=== PATIENT | female | born 1995 | race Caucasian/White ===

== ENCOUNTER 2017-10-23 12:00 | Emergency (ER) | payer MEDICAID, OTHER ==
[~2017-10-23] VITALS: Ht 162.6 cm; Wt 109.0 kg
[~2017-10-23 12:00] MED LIST: MACROBID PO; OMEG500C3 PO; PREN-139 PO
[2017-10-23 12:16] VITALS: BP 138/86
[2017-10-23] MEDS ORDERED: ketorolac trometh inj. 60 MG/2 ML VIAL IM ONE (12:25)
[2017-10-23] MEDS ORDERED: HYDROcodone/acetaminophen 5mg/325mg tablet PO ONE (12:25)
[2017-10-23] MEDS ORDERED: orphenadrine citrate 60mg/2ml inj. IM ONE (12:25)
[2017-10-23] MEDS ORDERED: CYCL-1 PO (13:05)
[2017-10-23] MEDS ORDERED: IBUP-1984 PO (13:05)
== END 2017-10-23 13:16 | disposition home or self-care (01) ==
LOC: ER 12:01
DX: M54.6 Pain in thoracic spine (principal); M62.830 Muscle spasm of back; Z88.2 Allergy status to sulfonamides; Z88.1 Allergy status to other antibiotic agents; Z79.899 Other long term (current) drug therapy; X50.1XXA Overexertion from prolonged static or awkward postures, initial encounter; Y93.89 Activity, other specified; Y92.89 Other specified places as the place of occurrence of the external cause; Y99.9 Unspecified external cause status
CPT/HCPCS: 72070; 96372; 99284; J1885; J2360

== ENCOUNTER 2018-01-07 20:49 | Emergency (ER) | payer OTHER ==
[~2018-01-07] VITALS: Ht 162.6 cm; Wt 109.0 kg
[~2018-01-07 20:49] MED LIST changes: +CYCL-1 PO
[2018-01-07] MEDS ORDERED: metoclopramide 5 mg/ml inj IV ONE (21:30)
[2018-01-07] MEDS ORDERED: diphenhydrAMINE 50 mg/ml inj IV ONE (21:30)
[2018-01-07] MEDS ORDERED: normal saline 1000ML IV soln IVB ONE (21:30)
[2018-01-07 21:45] VITALS: BP 130/84
[2018-01-09] MEDS ORDERED: LORA0.5T PO (22:05)
[2018-01-09] MEDS ORDERED: MECL-111 PO (22:05)
== END 2018-01-07 22:35 | disposition home or self-care (01) ==
LOC: ER 20:49
DX: G43.909 Migraine, unspecified, not intractable, without status migrainosus (principal); Z88.2 Allergy status to sulfonamides; Z88.1 Allergy status to other antibiotic agents; Z88.0 Allergy status to penicillin; Z79.899 Other long term (current) drug therapy
CPT/HCPCS: 96374; 96375; 99283; J1200; J2765; J7030

== ENCOUNTER 2018-04-07 08:05 | Emergency (ER) | payer OTHER ==
[~2018-04-07] VITALS: Ht 162.6 cm; Wt 114.0 kg
[~2018-04-07 08:05] MED LIST changes: +CLIN150C2 PO; +DEC4T PO; +MECL-111 PO
[2018-04-07 08:20] VITALS: BP 176/93
== END 2018-04-07 08:49 | disposition home or self-care (01) ==
LOC: ER 08:05
DX: H66.91 Otitis media, unspecified, right ear (principal); G43.909 Migraine, unspecified, not intractable, without status migrainosus; Z88.1 Allergy status to other antibiotic agents; Z88.2 Allergy status to sulfonamides
CPT/HCPCS: 99281

== ENCOUNTER 2018-10-03 19:13 | Emergency (ER) | payer OTHER ==
[~2018-10-03] VITALS: Ht 162.6 cm; Wt 100.1 kg
[~2018-10-03 19:13] MED LIST changes: -CLIN150C2 PO; -CYCL-1 PO; -DEC4T PO; -MACROBID PO; -OMEG500C3 PO; +ONDA8TAB6 PO; -PREN-139 PO
[2018-10-03 19:26] VITALS: BP 123/86
[2018-10-03] MEDS ORDERED: meclizine 12.5mg tablet PO ONE (21:05)
[2018-10-03] MEDS ORDERED: diphenhydrAMINE 50 mg/ml inj IV ONE (21:05)
[2018-10-03] MEDS ORDERED: ketorolac tromethamine 15mg/ml inj. IV ONE (21:05)
[2018-10-03] MEDS ORDERED: normal saline 1000ML IV soln IVB ONE (21:05)
[2018-10-03] MEDS ORDERED: proCHLORperazine 10 MG/2 ml inj IV ONE (21:05)
[2018-10-03] MEDS ORDERED: LORazepam 2 mg/ml vial IV ONE (21:05)
[2018-10-03] MEDS ORDERED: SUMA25TA35 PO (23:10)
== END 2018-10-03 23:31 | disposition home or self-care (01) ==
LOC: ER 19:14
DX: G43.909 Migraine, unspecified, not intractable, without status migrainosus (principal); R42 Dizziness and giddiness; F10.99 Alcohol use, unspecified with unspecified alcohol-induced disorder; Z88.2 Allergy status to sulfonamides; Z88.1 Allergy status to other antibiotic agents; Z79.899 Other long term (current) drug therapy; Y90.9 Presence of alcohol in blood, level not specified
CPT/HCPCS: 96361; 96374; 96375; 99283; J0780; J1200; J1885; J2060; J7030; J8597

== ENCOUNTER 2018-11-30 11:24 | Emergency (ER) | payer OTHER ==
[~2018-11-30] VITALS: Ht 162.6 cm; Wt 97.0 kg
--- NOTE | 2018-11-30 11:39 | NUR ---
awaiting for ed provider.
[2018-11-30] MEDS ORDERED: proCHLORperazine 10 MG/2 ml inj IV ONE (12:00)
[2018-11-30] MEDS ORDERED: normal saline 1000ML IV soln IVB ONE (12:00)
[2018-11-30] MEDS ORDERED: diazepam 5mg tablet PO ONE (12:00)
[2018-11-30] MEDS ORDERED: diphenhydrAMINE 50 mg/ml inj IV ONE (12:00)
--- NOTE | 2018-11-30 12:33 | NUR ---
primary rn just sent to lunch, will monitor all her pt's
[2018-11-30] MEDS ORDERED: morphine 4 MG/ML inj SYRINge IV ONE (13:30)
[2018-11-30] MEDS ORDERED: NORMAL SALINE IV ONE (13:30)
[2018-11-30] MEDS ORDERED: KETAMINE IV ONE (13:30)
--- NOTE | 2018-11-30 13:38 | NUR ---
called pharmacy,still mixing ketamine.
[2018-11-30 14:41] VITALS: BP 132/67
== END 2018-11-30 14:44 | disposition home or self-care (01) ==
LOC: ER 11:24
DX: G43.909 Migraine, unspecified, not intractable, without status migrainosus (principal); R11.2 Nausea with vomiting, unspecified; F10.99 Alcohol use, unspecified with unspecified alcohol-induced disorder; Z88.2 Allergy status to sulfonamides; Z88.1 Allergy status to other antibiotic agents; Z79.899 Other long term (current) drug therapy; Y90.9 Presence of alcohol in blood, level not specified
CPT/HCPCS: 70450; 96361; 96365; 96375; 99284; J0780; J1200; J7030

== ENCOUNTER 2021-08-22 19:23 | Emergency (ER) | payer OTHER, MEDICAID ==
[~2021-08-22] VITALS: Ht 162.6 cm; Wt 101.4 kg
[~2021-08-22 19:23] MED LIST changes: -MECL-111 PO; +MECL-159 PO
[2021-08-22 19:39] VITALS: BP 131/88
[2021-08-22] MEDS ORDERED: proCHLORperazine 10 MG/2 ml inj IV ONE (21:30)
[2021-08-22] MEDS ORDERED: normal saline 1000ml 1,000 ML IV ONE (21:30)
[2021-08-22] MEDS ORDERED: diphenhydrAMINE 50 mg/ml inj IV ONE (21:30)
[2021-08-22] MEDS ORDERED: LORazepam 2 mg/ml vial IV ONE (22:35)
[2021-08-22 22:51] LABS: HCG SERUM QL NEGATIVE
== END 2021-08-23 00:46 | disposition left against medical advice (07) ==
LOC: ER 19:23
DX: H81.10 Benign paroxysmal vertigo, unspecified ear (principal); G43.909 Migraine, unspecified, not intractable, without status migrainosus; Z88.1 Allergy status to other antibiotic agents; Z88.2 Allergy status to sulfonamides
CPT/HCPCS: 36415; 70450; 84703; 96361; 96374; 96375; 99284; J0780; J1200; J2060; J7030

== ENCOUNTER 2021-09-28 11:56 | Emergency (ER) | payer OTHER, MEDICAID ==
[~2021-09-28] VITALS: Ht 162.6 cm; Wt 97.7 kg
[2021-09-28 12:23] VITALS: BP 127/82
[2021-09-28] MEDS ORDERED: normal saline 1000ml 1,000 ML IV ONE (13:55)
[2021-09-28] MEDS ORDERED: cyclobenzaprine 10mg tablet PO ONE (13:55)
[2021-09-28] MEDS ORDERED: ketorolac trometh. 30mg/ml inj. IV ONE (13:55)
[2021-09-28 14:25] LABS: CLARITY,URINE SLIGHTLY CLOUDY (Clear); COLOR,URINE YELLOW (Yellow); GLUCOSE, URINE NEGATIVE (Neg); KETONES,URINE 15 mg/dl (Neg); LEUKOCYTE ESTERASE ,URINE TRACE (Neg); NITRITES, URINE NEGATIVE (Neg); OCCULT BLOOD,URINE NEGATIVE (Neg); PH,URINE 5.5 (4.8-8.0); PROTEIN,URINE NEGATIVE (Neg); UROBILINOGEN,URINE 0.2 E.U/dL (0.2-1.0)
[2021-09-28 14:28] LABS: UA COLLECTION TYPE NON-SPECIFIED
[2021-09-28 14:31] LABS: URINE AMPHETAMINE SCREEN NEGATIVE (Neg); URINE BARBITUATE SCREEN NEGATIVE (Neg); URINE BENZODIAZEPINES SCREEN NEGATIVE (Neg); URINE CANNABINOID SCREEN NEGATIVE (Neg); URINE COCAINE SCREEN NEGATIVE (Neg); URINE METHADONE SCREEN NEGATIVE (Neg); URINE OPIATE SCREEN NEGATIVE (Neg); URINE PHENCYCLIDINE SCREEN NEGATIVE (Neg)
[2021-09-28 14:36] LABS: BASOPHILS % (AUTO) 0.2 % (0-1); EOSINOPHILS % (AUTO) 0.6 % (0-6); HEMATOCRIT 41.7 % (35.0-45.0); HEMOGLOBIN 14.1 g/dl (12.0-16.0); LYMPHOCYTES # (AUTO) 1.5 X10'3 (1.1-4.8); LYMPHOCYTES % (AUTO) 18.3 % (21-51); MEAN CORPUSCULAR HEMOGLOBIN 28.8 PG (27.0-31.0); MEAN CORPUSCULAR HGB CONC 33.7 g/dL (33.0-36.5); MEAN CORPUSCULAR VOLUME 85.4 FL (78-98); MEAN PLATELET VOLUME 7.7 FL (7.4-10.4); MONOCYTES # (AUTO) 0.3 X10'3 (0-0.9); MONOCYTES % (AUTO) 4.4 % (2-12); NEUTROPHILS # (AUTO) 6.1 X10'3 (1.8-7.7); NEUTROPHILS % (AUTO) 76.5 % (42-75); PLATELET COUNT 267 X10'3 (140-440); RED BLOOD COUNT 4.89 X10'6 (4.20-5.60); RED CELL DISTRIBUTION WIDTH 13.4 % (11.5-14.5); WHITE BLOOD COUNT 7.9 X10'3 (4.5-11.0)
[2021-09-28 14:42] LABS: SQUAMOUS EPITHELIAL CELL,UR MANY /LPF (FEW)
[2021-09-28 14:43] LABS: WBC,URINE 0-4 /HPF (0-4)
[2021-09-28 14:44] LABS: WBC CLUMPS,URINE FEW /HPF (NEGATIVE)
[2021-09-28 14:45] LABS: BACTERIA,URINE 1+ /HPF (Neg); RBC,URINE 0-2 /HPF (0-2)
[2021-09-28 14:48] LABS: ALANINE AMINOTRANSFERASE 27 U/L (12-78); ALBUMIN 4.2 G/DL (3.4-5.0); ALBUMIN/GLOBULIN RATIO 1.3 (1.1-1.5); ALKALINE PHOSPHATASE 84 IU/L (46-116); ANION GAP 10 (8-16); ASPARTATE AMINO TRANSFERASE 20 U/L (10-37); BILIRUBIN,TOTAL 1.6 MG/DL (0.1-1.0); BLOOD UREA NITROGEN 12 MG/DL (7-18); CALCIUM 8.8 MG/DL (8.5-10.1); CHLORIDE 107 MMOL/L (99-107); CREATININE 0.63 MG/DL (0.40-0.90); GLUCOSE 110 MG/DL (70-104); POTASSIUM 3.5 MMOL/L (3.5-5.1); SODIUM 143 MMOL/L (135-145); TOTAL CARBON DIOXIDE 26.1 MMOL/L (24-32); TOTAL PROTEIN 7.5 G/DL (6.4-8.2); eGFR > 90 ML/MIN
[2021-09-28] MEDS ORDERED: CYCL-1 PO (15:25)
[2021-09-28] MEDS ORDERED: MECL-159 PO (15:25)
[2021-09-28] MEDS ORDERED: IBUP-1986 PO (15:25)
== END 2021-09-28 15:57 | disposition home or self-care (01) ==
LOC: ER 11:56
DX: M54.89 Other dorsalgia (principal); H81.10 Benign paroxysmal vertigo, unspecified ear; M54.2 Cervicalgia; R11.10 Vomiting, unspecified; G89.29 Other chronic pain; G43.909 Migraine, unspecified, not intractable, without status migrainosus; Z72.89 Other problems related to lifestyle; Z88.2 Allergy status to sulfonamides; Z88.1 Allergy status to other antibiotic agents; Z88.8 Allergy status to other drugs, medicaments and biological substances; Z79.899 Other long term (current) drug therapy
CPT/HCPCS: 36415; 80053; 80305; 81001; 85025; 96361; 96374; 99284; J1885; J7030

== ENCOUNTER 2022-03-21 06:51 | Emergency (ER) | payer OTHER, MEDICAID ==
[~2022-03-21] VITALS: Ht 162.6 cm; Wt 100.0 kg
[~2022-03-21 06:51] MED LIST changes: +CYCL-1 PO; +IBUP-1986 PO
[2022-03-21 06:58] VITALS: BP 138/84
[2022-03-21] MEDS ORDERED: normal saline 1000ML IV soln IVB ONE (08:25)
[2022-03-21] MEDS ORDERED: SUMAtriptan succ. 6 MG/0.5ml vial SQ ONE (08:25)
[2022-03-21] MEDS ORDERED: metoclopramide 5 mg/ml inj IV ONE (08:25)
--- NOTE | 2022-03-21 09:39 | NUR ---
pt now states headache is gone and feels better, placed for re-eval to
== END 2022-03-21 10:54 | disposition home or self-care (01) ==
LOC: ER 06:52
DX: G43.909 Migraine, unspecified, not intractable, without status migrainosus (principal); G89.29 Other chronic pain; M54.9 Dorsalgia, unspecified; Z88.2 Allergy status to sulfonamides; Z88.1 Allergy status to other antibiotic agents; Z79.899 Other long term (current) drug therapy
CPT/HCPCS: 96361; 96372; 96374; 99284; J2765; J3030; J7030

== ENCOUNTER 2022-06-08 18:47 | Emergency (ER) | payer OTHER, MEDICAID ==
[~2022-06-08] VITALS: Ht 162.6 cm; Wt 96.4 kg
[2022-06-08 19:09] LABS: BASOPHILS % (AUTO) 0.1 % (0-1); EOSINOPHILS % (AUTO) 0.1 % (0-6); HEMATOCRIT 43.2 % (35.0-45.0); HEMOGLOBIN 14.4 g/dl (12.0-16.0); LYMPHOCYTES # (AUTO) 1.2 X10'3 (1.1-4.8); LYMPHOCYTES % (AUTO) 11.3 % (21-51); MEAN CORPUSCULAR HEMOGLOBIN 28.9 PG (27.0-31.0); MEAN CORPUSCULAR HGB CONC 33.4 g/dL (33.0-36.5); MEAN CORPUSCULAR VOLUME 86.7 FL (78-98); MEAN PLATELET VOLUME 7.3 FL (7.4-10.4); MONOCYTES # (AUTO) 0.3 X10'3 (0-0.9); MONOCYTES % (AUTO) 2.9 % (2-12); NEUTROPHILS # (AUTO) 9.3 X10'3 (1.8-7.7); NEUTROPHILS % (AUTO) 85.6 % (42-75); PLATELET COUNT 273 X10'3 (140-440); RED BLOOD COUNT 4.98 X10'6 (4.20-5.60); RED CELL DISTRIBUTION WIDTH 12.7 % (11.5-14.5); WHITE BLOOD COUNT 10.8 X10'3 (4.5-11.0)
[2022-06-08 19:12] VITALS: BP 115/80
[2022-06-08 19:21] LABS: ALANINE AMINOTRANSFERASE 23 U/L (12-78); ALBUMIN 4.4 G/DL (3.4-5.0); ALBUMIN/GLOBULIN RATIO 1.3 (1.1-1.5); ALKALINE PHOSPHATASE 81 IU/L (46-116); ANION GAP 9 (8-16); ASPARTATE AMINO TRANSFERASE 17 U/L (10-37); BILIRUBIN,TOTAL 1.4 MG/DL (0.1-1.0); BLOOD UREA NITROGEN 11 MG/DL (7-18); BUN/CREATININE RATIO 14.9 (10.0-20.0); CALCIUM 8.8 MG/DL (8.5-10.1); CHLORIDE 105 MMOL/L (99-107); CREATININE 0.74 MG/DL (0.40-0.90); GLUCOSE 109 MG/DL (70-104); POTASSIUM 4.2 MMOL/L (3.5-5.1); SODIUM 139 MMOL/L (135-145); TOTAL CARBON DIOXIDE 24.7 MMOL/L (24-32); TOTAL PROTEIN 7.8 G/DL (6.4-8.2); eGFR > 90 ML/MIN
[2022-06-08 19:28] LABS: MAGNESIUM 2.2 MG/DL (1.5-2.4)
[2022-06-08] MEDS ORDERED: ondansetron 4mg rapidly disintigrating tab PO ONE (19:50)
[2022-06-08] MEDS ORDERED: LIDOcaine Viscous 15ml cup MM ONE (19:50)
[2022-06-08] MEDS ORDERED: pantoprazole 40mg Tablet.DR PO ONE (19:50)
[2022-06-08] MEDS ORDERED: mag hydrox/Alum hydrox/simeth 30ml oral suspension PO ONE (19:50)
[2022-06-08] MEDS ORDERED: PANT-47 PO (21:15)
== END 2022-06-08 21:25 | disposition home or self-care (01) ==
LOC: ER 18:48
DX: K29.00 Acute gastritis without bleeding (principal); G89.29 Other chronic pain; M54.9 Dorsalgia, unspecified; G43.909 Migraine, unspecified, not intractable, without status migrainosus; Z88.2 Allergy status to sulfonamides; Z88.1 Allergy status to other antibiotic agents; Z79.899 Other long term (current) drug therapy; Z88.8 Allergy status to other drugs, medicaments and biological substances
CPT/HCPCS: 36415; 76700; 80053; 83735; 83880; 84484; 85025; 93005; 99284

== ENCOUNTER 2024-01-22 17:11 | Emergency (ER) | payer BC, MEDICAID, OTHER ==
[~2024-01-22] VITALS: Ht 162.6 cm; Wt 95.9 kg
[~2024-01-22 17:11] MED LIST changes: -MECL-159 PO; +MECL-302 PO; +PANT-47 PO
[2024-01-22 19:40] LABS: BASOPHILS % (AUTO) 0.2 % (0-1); EOSINOPHILS % (AUTO) 0.3 % (0-6); HEMATOCRIT 42.5 % (35.0-45.0); HEMOGLOBIN 14.6 g/dl (12.0-16.0); LYMPHOCYTES # (AUTO) 1.6 X10'3 (1.1-4.8); LYMPHOCYTES % (AUTO) 15.4 % (21-51); MEAN CORPUSCULAR HEMOGLOBIN 29.9 PG (27.0-31.0); MEAN CORPUSCULAR HGB CONC 34.3 g/dL (33.0-36.5); MEAN CORPUSCULAR VOLUME 87.1 FL (78-98); MEAN PLATELET VOLUME 7.3 FL (7.4-10.4); MONOCYTES # (AUTO) 0.5 X10'3 (0-0.9); MONOCYTES % (AUTO) 4.4 % (2-12); NEUTROPHILS # (AUTO) 8.3 X10'3 (1.8-7.7); NEUTROPHILS % (AUTO) 79.7 % (42-75); PLATELET COUNT 302 X10'3 (140-440); RED BLOOD COUNT 4.88 X10'6 (4.20-5.60); RED CELL DISTRIBUTION WIDTH 12.9 % (11.5-14.5); WHITE BLOOD COUNT 10.4 X10'3 (4.5-11.0)
[2024-01-22 19:55] LABS: ALANINE AMINOTRANSFERASE 26 U/L (12-78); ALBUMIN 4.2 G/DL (3.4-5.0); ALBUMIN/GLOBULIN RATIO 1.2 (1.1-1.5); ALKALINE PHOSPHATASE 76 IU/L (46-116); ANION GAP 9 (8-16); ASPARTATE AMINO TRANSFERASE 17 U/L (10-37); BILIRUBIN,TOTAL 1.6 MG/DL (0.1-1.0); BLOOD UREA NITROGEN 13 MG/DL (7-18); BUN/CREATININE RATIO 17.6 (10.0-20.0); CALCIUM 8.6 MG/DL (8.5-10.1); CHLORIDE 106 MMOL/L (99-107); CREATININE 0.74 MG/DL (0.40-0.90); GLUCOSE 103 MG/DL (70-104); POTASSIUM 3.9 MMOL/L (3.5-5.1); SODIUM 141 MMOL/L (135-145); TOTAL CARBON DIOXIDE 25.6 MMOL/L (24-32); TOTAL PROTEIN 7.8 G/DL (6.4-8.2); eCRCL 96 ML/MIN; eGFR > 90 ML/MIN
[2024-01-22 20:04] LABS: PRO BRAIN NATRIURETIC PEPTIDE < 30 PG/ML (0-125)
[2024-01-22] MEDS ORDERED: MECL-302 PO (20:21)
[2024-01-22 20:28] VITALS: BP 124/89; PULSE 62; RESP 16; TEMP 98.6; O2SAT 99
== END 2024-01-22 20:30 | disposition home or self-care (01) ==
LOC: ER 17:12
DX: R42 Dizziness and giddiness (principal); H93.12 Tinnitus, left ear; G43.909 Migraine, unspecified, not intractable, without status migrainosus; G89.29 Other chronic pain; Z88.2 Allergy status to sulfonamides; Z88.1 Allergy status to other antibiotic agents; Z91.018 Allergy to other foods; Z88.0 Allergy status to penicillin; Z88.8 Allergy status to other drugs, medicaments and biological substances; Z79.899 Other long term (current) drug therapy
CPT/HCPCS: 36415; 71045; 80053; 83880; 84484; 85025; 93005; 99285